=== PATIENT | male | born 1940 | race Native Hawaiian/Other Pacific Islander ===

== ENCOUNTER 2018-03-16 00:50 | Outpatient (CLI) | payer OTHER, MEDICARE | END 2018-03-16 01:11 | disposition short-term general hospital (02) | LOC: AMB 00:50 | DX: I46.9 Cardiac arrest, cause unspecified (principal) | CPT/HCPCS: A0425; A0433 ==

== ENCOUNTER 2018-03-16 01:15 | Emergency (ER) | payer OTHER, MEDICARE ==
[~2018-03-16] VITALS: Ht 182.9 cm; Wt 99.8 kg
== END 2018-03-16 02:26 | disposition expired ==
LOC: ED 01:15
DX: I46.9 Cardiac arrest, cause unspecified (principal)
CPT/HCPCS: 93005